=== PATIENT | female | born 1950 | race Caucasian/White ===

== ENCOUNTER → 2018-03-29 | Outpatient (CLI) | payer OTHER ==
[2015-02-07 15:09] VITALS: BMI 34.2
[~2018-03-29] MED LIST: ASPI-1471 PO; CHOL200074 PO; CYAN25004; FOLI0.4T56 PO; KRIL500C2 PO; LEVO50TA86 PO; LEVO75TA73 PO; METF-410 PO; OMEP40CA48 PO; PNEU0.5D3 IM; ROSU10TA13 PO; UBID10CA11 PO; VITA1CAP46 PO
== END ==
LOC: LAB 16:14
PROVIDERS: ATTEND Emergency Medicine
DX: E11.9 Type 2 diabetes mellitus without complications (principal)
CPT/HCPCS: 82043

== ENCOUNTER → 2018-05-13 | Outpatient (CLI) | payer OTHER ==
[2015-02-07 15:09] VITALS: BMI 34.2
[~2018-05-13] MED LIST changes: +FERR324T16 PO; -METF-410 PO; +METF-411 PO
== END ==
LOC: LAB 10:11
PROVIDERS: ATTEND Emergency Medicine
DX: R71.8 Other abnormality of red blood cells (principal)
CPT/HCPCS: 82274

== ENCOUNTER → 2018-11-01 | Outpatient (CLI) | payer OTHER ==
[2015-02-07 15:09] VITALS: BMI 34.2
[~2018-11-01] MED LIST changes: -METF-411 PO; +METF-450 PO; -ROSU10TA13 PO; +ROSU10TA5 PO
--- NOTE | 2018-11-01 16:57 | RADIOLOGY IMAGING REPORT ---
FACILITY: [facility] - [place] PATIENT NAME: Priscila Ohara : 1950 MR: [id number] V: [id number] EXAM DATE: ORDERING PHYSICIAN: IZABEL VEGA TECHNOLOGIST: Location: [facility] [place] Patient: Priscila Ohara : 1950 Visit/Account:[id number] Date of Sevice: 11/01/2018 DEXA Scan Clinical history: Postmenopausal baseline . Comparison: None available. LUMBAR SPINE: The bone mineral density (BMD) measured from L1-L4 correlates with a Z-score -0.3 and a T-score of -1 .6 which is osteopenia as defined by the World Health Organization. The corresponding risk of fractu re in the lumbar spine is 3-4 times increased compared with a young adult reference population. HIP: Bone mineral density (BMD) measured in the Left total hip region correlates with a Z-score -0.2 and a T-score of -1.2 which is osteopenia as defined by the World Health Organization. The corresponding risk of fracture in the hip is to 3 times increased compared with a young adult reference population. T score left femoral neck -2.1 Bone mineral density (BMD) measured in the Femoral Neck region measures 0.750 g/cm2. Impression: 1. Lumbar spine: Osteopenia. 2. Left Hip: Osteopenia. 3. Femoral Neck: Bone Mineral Density is 0.750 g/cm2 The next DEXA scan of this patient should include the following sites: L1-L4 and the left hip. FRAX? WHO Fracture Risk Assessment Tool link: <http://www.shef.ac.uk/FRAX/tool.jsp?locationValue=9> PLEASE NOTE: 1) The World Health Organization defines low BMD as follows: T-score Normal > -1 Osteopenia < -1 and > -2.5 Osteoporosis < -2.5 without fractures Established osteoporosis < -2.5 with fractures 2) In general, you may wish to consider: Diagnosis Treatment Follow-up DEXA Normal BMD Prevention 2-3 years Osteopenia Prevention/therapy 1-2 years Osteoporosis Therapy Yearly 3) Fracture risk estimated from the T-score is more accurate for vertebral fractures (often spontane ous) than for hip fractures. Report Dictated By: No Grijalva MD at 11/01/2018 4:52 PM Report E-Signed By: No Grijalva MD at 11/01/2018 4:53 PM WSN:GRAY
== END ==
LOC: RAD 04:34
PROVIDERS: ATTEND Nurse Practitioner Family
DX: M85.80 Other specified disorders of bone density and structure, unspecified site (principal); Z78.0 Asymptomatic menopausal state
CPT/HCPCS: 77080

== ENCOUNTER → 2019-04-12 | Outpatient (CLI) | payer OTHER ==
[2015-02-07 15:09] VITALS: BMI 34.2
== END ==
LOC: LAB 15:37
PROVIDERS: ATTEND Urology
DX: N39.0 Urinary tract infection, site not specified (principal)
CPT/HCPCS: 81001; 87088

== ENCOUNTER 2019-05-13 22:20 | Emergency (ER) | payer OTHER ==
[2015-02-07 15:09] VITALS: Wt 72.6 kg
[2019-05-13 22:26] VITALS: BP 144/42
--- NOTE | 2019-05-13 22:28 | ER Report ---
History and Physical Time Seen By MD: 22:26 HPI/ROS CHIEF COMPLAINT: Eye pain HISTORY OF PRESENT ILLNESS: 68-year-old female has right eye pain from attempted to put in a new contact a day. She thinks she scratched her eye. She should remove the contact, but she can't find it. He has severe eye tearing and redness. Allergies: Coded Allergies: No Known Drug Allergies (Unverified , 05/13/19) Home Meds Active Scripts Rosuvastatin Calcium (Rosuvastatin Calcium) 10 Mg Tablet, 1 TAB PO DAILY, #30 TAB 0 Refills Prov:LAKIA ADDISON MD 06/01/18 Ferrous Sulfate (FERROUS SULFATE) 324 Mg Tablet., 324 MG PO QDAY, #100 TAB Prov:LAKIA ADDISON MD 05/12/18 Reported Medications Krill Oil (KRILL OIL) Unknown Strength Capsule, PO, CAPSULE 03/29/18 Folic Acid (FOLIC ACID) Unknown Strength Tablet, PO 03/29/18 Ubidecarenone (CO Q-10) Unknown Strength Capsule, PO, CAPSULE 03/29/18 Cyanocobalamin (Vitamin B-12) (Vitamin B12) Unknown Strength Tablet 03/29/18 Vitamin B Complex (VITAMIN B COMPLEX) Unknown Strength Capsule, PO, CAPSULE 03/29/18 Cholecalciferol (Vitamin D3) (VITAMIN D-3) Unknown Strength Capsule, PO, CAPSULE 03/29/18 Levothyroxine Sodium (LEVOTHYROXINE SODIUM) 50 Mcg Tablet, 50 MCG PO 1xweekly, TAB 03/29/18 Levothyroxine Sodium (LEVOTHYROXINE SODIUM) 75 Mcg Tablet, 75 MCG PO 6xweekly, TAB 03/29/18 Metformin Hcl (METFORMIN HCL) 500 Mg Tablet, 1 TAB PO BID, TAB 03/29/18 Discontinued Reported Medications Aspirin (ASPIR 81) 81 Mg Tablet.dr, 81 MG PO DAILY, TAB 03/29/18 Omeprazole (OMEPRAZOLE) 40 Mg Capsule., 40 MG PO QHS, CAP 03/29/18 Reviewed Nurses Notes: Yes Old Medical Records Reviewed: Yes Smoking Status: Former Smoker Exposure to Second Hand Smoke?: Yes (both parents smoked) Hx Substance Use Disorder: No Hx Alcohol Use: No Constitutional Vital Sign - Last 24 Hours 05/13/19 22:26 Temp 98.0 Pulse 100 Resp 12 B/P (MAP) 144/42 Pulse Ox 90 O2 Delivery Room Air Physical Exam General appearance: Alert no distress. HEENT: Right eye is injected. There is tearing and mattering. Foreseen is instilled with proparacaine. Once labs show significant corneal abrasion over 60% of the cornea on the left. Eyes normal Respiratory: Chest is non tender, lungs are clear to auscultation. Cardiac: Regular rate and rhythm DIFFERENTIAL DIAGNOSIS: After history and physical exam differential diagnosis was considered for corneal ulcer, contact keratitis, corneal abrasion, conjunctivitis Medical Decision Making ED Course/Re-evaluation ED Course Patient admitted to an examination room. H&P is done. The differential diagnosis is considered. On examination patient has a corneal abrasion from contact. There is no contact found in her eye. There are no foreign bodies. Patient's treated with Tobrex drops. One drop twice daily for 2-3 days. Follow-up with trim crew supervisor if unimproved in 3-4 days. Decision to Disposition Date: May 13, 2019 Decision to Disposition Time: 22:44 Depart Departure Latest Vital Signs Vital Signs Date Time Temp Pulse Resp B/P (MAP) Pulse Ox O2 Delivery O2 Flow Rate FiO2 05/13/19 22:26 98.0 100 12 144/42 90 Room Air Impression: Primary Impression: Corneal abrasion, right Condition: Improved Disposition: HOME OR SELF-CARE Referrals: IZABEL VEGA (PCP) Patient Instructions: Corneal Abrasion (ED) Additional Instructions: Use Tobrex drops 1 drop 2-3 times per day in right eye for 2-3 days Use proparacaine drops for anesthetic be very cautious not to rub her eye. When it is non-acute can cause more corneal abrasions Use Tylenol and ibuprofen for additional pain relief Do not wear contact lens for 4-5 days Follow-up with the doctor that prescribed your contact lenses if unimproved in 4-5 days Problem Qualifiers Primary Impression: Corneal abrasion, right Encounter type: initial encounter Qualified Codes: S05.01XA - Injury of conjunctiva and corneal abrasion without foreign body, right eye, initial encounter SANTINO PIPER DO May 13, 2019 22:28
[2019-05-13] MEDS ORDERED: FLUORESCEIN SOD 1 MG 1 EA STRP OU ONE (22:40)
[2019-05-13] MEDS ORDERED: PROPARACAINE 0.5% OP 15ML BTL OU ONE (22:40)
[2019-05-13] MEDS ORDERED: TOBRAMYCIN/DEX OP SUSP 2.5 ML OD ONE (22:45)
== END 2019-05-13 22:56 | disposition home or self-care (01) ==
LOC: ER 22:44
DX: S05.01XA Injury of conjunctiva and corneal abrasion without foreign body, right eye, initial encounter (principal)
CPT/HCPCS: 99283